=== PATIENT | male | born 2000 | race Caucasian/White ===

== ENCOUNTER 2025-08-21 13:05 | Outpatient (CLI) | payer OTHER, SELFPAY ==
--- NOTE | ~2025-08-21 | XR_ITS ---
XR lumbar spine min 4V Indication: lower back pain x 2-3 months, no inj, no surg Comparison: None Findings: The vertebral heights are intact. No fracture or subluxation. The disc heights are intact. Soft tissues unremarkable Impression: No acute abnormality. Reviewed, dictated and finalized at location P. [employer] Impression: No acute abnormality.
== END 2025-08-21 13:06 | disposition home or self-care (01) ==
PROVIDERS: PCP Chiropractor; Visit Provider Chiropractor
DX: M54.50 Low back pain, unspecified (principal)
CPT/HCPCS: 72110